=== PATIENT | male | born 1970 | race Caucasian/White ===

== ENCOUNTER 2020-02-19 12:19 | Inpatient (IN) ==
[2020-02-19] MEDS ORDERED: Naloxone 0.4 MG/ML INJ IVP PRN (15:27)
[2020-02-19] MEDS ORDERED: Ondansetron 4 MG/2 ML VIAL IVP PRN (15:27)
[2020-02-19] MEDS ORDERED: *HR* HYDROcodone/Acet 5/325 mg TABLET PO PRN (15:27)
[2020-02-19] MEDS ORDERED: Albuterol 2.5 MG/3 ML NEBULIZER IH PRN (15:30)
[2020-02-19] MEDS ORDERED: 0.9 % Sodium Chloride 1,000 ML IVC SCH (15:30)
[2020-02-19] MEDS ORDERED: *HR* LORazepam 2 MG/ML VIAL IVP PRN ×2 (15:34→15:36)
[2020-02-19] MEDS ORDERED: Perflutren Lipid Microsphere 1.3 ML in 0.9 % Sodium Chloride 8.7 ML IVP PRN (16:12)
[2020-02-19 16:13] LABS: Prothrombin Time 11.3 Seconds (9.4-12.1)
[2020-02-19 16:15] LABS: Activated Partial Thrombo Time 39.5 Seconds (26.0-36.0)
[2020-02-19 16:19] LABS: Basophils # 0.1 K/mcL (0.0-0.2); Basophils % 1.4 %; Eosinophils # 0.3 K/mcL (0.0-0.6); Eosinophils % 3.9 %; Immature Granulocytes % 0.3 % (0-4); Lymphocytes # 1.6 K/mcL (0.6-4.6); Lymphocytes % 25.6 %; Mean Corpuscular HGB Conc 32.6 g/dL (31.6-35.5); Mean Corpuscular Hemoglobin 34.1 pg (28.0-33.3); Mean Corpuscular Volume 104.6 fL (83.0-100.0); Mean Platelet Volume 10.3 fL (9.4-12.4); Monocytes # 0.7 K/mcL (0.0-1.3); Monocytes % 10.6 %; Neutrophils # 3.7 K/mcL (1.6-8.9); Platelet Count 174 K/mcL (140-400); Red Blood Count 4.11 M/mcL (4.19-5.50); Red Cell Distribution Width 13.2 % (11.5-14.5); Segmented Neutrophils % 58.2 %; White Blood Count 6.3 K/mcL (4.3-11.1)
[2020-02-19 16:26] LABS: Uric Acid 15.5 mg/dL (2.3-7.6)
[2020-02-19 16:28] LABS: Albumin 4.6 g/dL (3.5-5.7); Albumin/Globulin Ratio 1.2 (1.1-2.2); Bilirubin,Total 0.8 mg/dL (0.3-1.0); Calcium 10.6 mg/dL (8.6-10.3); Globulin 3.7 g/dL (2.4-3.5); Potassium 5.4 mEq/L (3.5-5.1); Total Protein 8.3 g/dL (6.4-8.9)
[2020-02-19 16:29] LABS: Amylase 49 Units/L (29-103); Lipase 29 Units/L (11-82)
[2020-02-19] MEDS: *HR* Heparin 5,000 UNIT/ML VIAL SQ SCH (17:17)
[2020-02-19 18:05] LABS: Bacteria,Urine Few per hpf (None-Few); Bilirubin,Urine Negative (Negative); Blood,Urine Negative (Negative); Clarity,Urine Clear (Clear); Color,Urine Light-Yellow (Yellow); Glucose,Urine (UA) Normal (Normal); Ketones,Urine Negative (Negative); Leukocyte Esterase,Urine Trace (Negative); Mucus,Urine Few per lpf (None-Few); Nitrite,Urine Negative (Negative); PH,Urine 5.5 pH Units (5.0-8.0); Protein,Urine 30 mg/dL (Neg-Trace); Specific Gravity,Urine 1.017 (1.010-1.025); Squamous Epithelial Cell,Urine Few per hpf (None-Few); Urobilinogen,Urine Normal (Normal)
[2020-02-19] MEDS: Sodium Bicarbonate 75 MEQ in 0.45 % Sodium Chloride 1,000 ML IVC SCH (18:08)
[2020-02-19 18:24] LABS: Creatinine,Urine 162 mg/dL; Potassium,Urine 17.9 mEq/L; Sodium, Urine 62.7 mEq/L
[2020-02-19 18:35] LABS: Amphetamine Screen,Urine Negative ng/mL (Cutoff=1000); Barbiturate Screen,Urine Negative ng/mL (Cutoff=200); Benzodiazepines Screen,Urine Positive ng/mL (Cutoff=200); Cannabinoid Screen,Urine Negative ng/mL (Cutoff = 50); Cocaine Screen,Urine Negative ng/mL (Cutoff= 300); Opiate Screen,Urine Negative ng/mL (Cutoff=300); Phencyclidine Screen,Urine Negative ng/mL (Cutoff=25)
[2020-02-19] MEDS: *HR* LORazepam 2 MG/ML VIAL IVP PRN (20:40)
[2020-02-20] MEDS: Sodium Bicarbonate 75 MEQ in 0.45 % Sodium Chloride 1,000 ML IVC SCH ×3 (04:08→23:24)
[2020-02-20] MEDS: *HR* Heparin 5,000 UNIT/ML VIAL SQ SCH ×2 (04:18→17:27)
[2020-02-20] MEDS: *HR* LORazepam 2 MG/ML VIAL IVP PRN ×3 (04:35→17:36)
[2020-02-20 05:38] LABS: Troponin I < 0.03 ng/mL (< 0.04)
[2020-02-20 07:24] LABS: BUN/Creatinine Ratio 22 (6-26); Blood Urea Nitrogen 120 mg/dL (6-20); Calcium 10.1 mg/dL (8.6-10.3); Carbon Dioxide 18 mEq/L (23-29); Chloride 99 mEq/L (98-107); Glucose 126 mg/dL (70-105); Osmolality,Calculated 314 (280-300); Potassium 5.2 mEq/L (3.5-5.1); Sodium 132 mEq/L (136-145); eGFR For African Americans 14 (> 60); eGFR For Non-African Americans 11 (> 60)
[2020-02-20 08:08] LABS: Estimated Average Glucose 126 mg/dl
[2020-02-20 09:09] LABS: Chol/HDL Ratio 8.1 (0-4.9); Cholesterol 202 mg/dL (< 200); HDL Cholesterol 25 mg/dL (40-59); LDL Cholesterol,Calculated 140 mg/dL (< 100); Triglycerides 185 mg/dL (< 150)
[2020-02-20] MEDS: Folic Acid 1 MG TABLET PO SCH (09:13)
[2020-02-20] MEDS: Vitamin B Complex/Vit C/Vit E 1 EACH TABLET PO SCH (09:13)
[2020-02-20] MEDS: Thiamine (B-1) 100 MG TABLET PO SCH (09:13)
[2020-02-20 09:35] LABS: Basophils # 0.1 K/mcL (0.0-0.2); Basophils % 1.6 %; Eosinophils # 0.2 K/mcL (0.0-0.6); Eosinophils % 4.7 %; Hematocrit 41.3 % (37.5-50.1); Immature Granulocytes % 0.2 % (0-4); Lymphocytes # 1.6 K/mcL (0.6-4.6); Lymphocytes % 30.9 %; Mean Corpuscular HGB Conc 33.9 g/dL (31.6-35.5); Mean Corpuscular Hemoglobin 35.2 pg (28.0-33.3); Mean Corpuscular Volume 103.8 fL (83.0-100.0); Mean Platelet Volume 10.5 fL (9.4-12.4); Monocytes # 0.5 K/mcL (0.0-1.3); Monocytes % 9.5 %; Neutrophils # 2.7 K/mcL (1.6-8.9); Platelet Count 167 K/mcL (140-400); Red Blood Count 3.98 M/mcL (4.19-5.50); Red Cell Distribution Width 13.1 % (11.5-14.5); Segmented Neutrophils % 53.1 %; White Blood Count 5.1 K/mcL (4.3-11.1)
[2020-02-20 09:38] LABS: Calcium 10.4 mg/dL (8.6-10.3)
[2020-02-20] MEDS: Nicotine 21 MG PATCH.TD24 TD SCH (11:57)
[2020-02-21] MEDS: Vilazodone Hcl [Viibryd] 10 MG PO SCH ×2 (02:18→07:05)
[2020-02-21] MEDS: Famotidine 20 MG TABLET PO SCH ×3 (02:29→19:27)
[2020-02-21 02:30] LABS: Basophils # 0.1 K/mcL (0.0-0.2); Basophils % 1.4 %; Eosinophils # 0.2 K/mcL (0.0-0.6); Eosinophils % 4.1 %; Immature Granulocytes % 0.2 % (0-4); Lymphocytes # 1.4 K/mcL (0.6-4.6); Lymphocytes % 32.7 %; Mean Corpuscular HGB Conc 33.2 g/dL (31.6-35.5); Mean Corpuscular Hemoglobin 34.6 pg (28.0-33.3); Mean Corpuscular Volume 104.2 fL (83.0-100.0); Mean Platelet Volume 10.7 fL (9.4-12.4); Monocytes # 0.4 K/mcL (0.0-1.3); Monocytes % 9.1 %; Neutrophils # 2.2 K/mcL (1.6-8.9); Platelet Count 144 K/mcL (140-400); Red Blood Count 3.55 M/mcL (4.19-5.50); Red Cell Distribution Width 12.9 % (11.5-14.5); Segmented Neutrophils % 52.5 %; White Blood Count 4.2 K/mcL (4.3-11.1)
[2020-02-21 02:31] LABS: Hemoglobin 12.3 g/dL (12.9-16.9)
[2020-02-21] MEDS: *HR* LORazepam 2 MG/ML VIAL IVP PRN ×4 (02:36→22:01)
[2020-02-21 02:50] LABS: Albumin 4.1 g/dL (3.5-5.7); Albumin/Globulin Ratio 1.3 (1.1-2.2); Bilirubin,Total 0.6 mg/dL (0.3-1.0); Calcium 9.6 mg/dL (8.6-10.3); Globulin 3.1 g/dL (2.4-3.5); Potassium 4.8 mEq/L (3.5-5.1); Total Protein 7.2 g/dL (6.4-8.9)
[2020-02-21] MEDS: *HR* Heparin 5,000 UNIT/ML VIAL SQ SCH ×3 (05:53→19:33)
[2020-02-21] MEDS: Thiamine (B-1) 100 MG TABLET PO SCH (07:12)
[2020-02-21] MEDS: Folic Acid 1 MG TABLET PO SCH (07:12)
[2020-02-21] MEDS: Nicotine 21 MG PATCH.TD24 TD SCH ×2 (07:12→10:33)
[2020-02-21] MEDS: Vitamin B Complex/Vit C/Vit E 1 EACH TABLET PO SCH (07:12)
[2020-02-21] MEDS: Sodium Bicarbonate 75 MEQ in 0.45 % Sodium Chloride 1,000 ML IVC SCH ×3 (10:34→19:33)
[2020-02-22] MEDS: *HR* LORazepam 2 MG/ML VIAL IVP PRN (01:59)
[2020-02-22 04:14] LABS: Hemoglobin 12.3 g/dL (12.9-16.9); Mean Corpuscular HGB Conc 32.4 g/dL (31.6-35.5); Mean Corpuscular Hemoglobin 33.9 pg (28.0-33.3); Mean Corpuscular Volume 104.7 fL (83.0-100.0); Mean Platelet Volume 10.7 fL (9.4-12.4); Platelet Count 143 K/mcL (140-400); Red Blood Count 3.63 M/mcL (4.19-5.50); White Blood Count 5.3 K/mcL (4.3-11.1)
[2020-02-22 04:31] LABS: Calcium 9.9 mg/dL (8.6-10.3); Potassium 4.7 mEq/L (3.5-5.1)
[2020-02-22 07:57] VITALS: BP 133/85
[2020-02-22] MEDS: Famotidine 20 MG TABLET PO SCH (08:28)
[2020-02-22] MEDS: Vitamin B Complex/Vit C/Vit E 1 EACH TABLET PO SCH (08:28)
[2020-02-22] MEDS: Nicotine 21 MG PATCH.TD24 TD SCH (08:28)
[2020-02-22] MEDS: Thiamine (B-1) 100 MG TABLET PO SCH (08:28)
[2020-02-22] MEDS: Folic Acid 1 MG TABLET PO SCH (08:28)
[2020-02-22] MEDS ORDERED: Metoprolol XL (24 HR) Succ 25 MG TAB.ER.24H PO SCH (09:00)
== END 2020-02-22 14:15 | disposition home or self-care (01) | DRG 683 ==
LOC: 2ANU
PROVIDERS: ADMIT Internal Medicine; ATTEND Internal Medicine

== ENCOUNTER 2020-03-11 20:43 | Inpatient (IN) ==
[2020-03-12] MEDS ORDERED: Naloxone 0.4 MG/ML INJ IVP PRN (01:21)
[2020-03-12 02:11] LABS: Basophils % 0.3 %; Eosinophils # 0.1 K/mcL (0.0-0.6); Eosinophils % 0.6 %; Hematocrit 38.1 % (37.5-50.1); Hemoglobin 12.6 g/dL (12.9-16.9); Immature Granulocytes % 0.2 % (0-4); Lymphocytes # 1.9 K/mcL (0.6-4.6); Lymphocytes % 18.6 %; Mean Corpuscular HGB Conc 33.1 g/dL (31.6-35.5); Mean Corpuscular Hemoglobin 33.7 pg (28.0-33.3); Mean Corpuscular Volume 101.9 fL (83.0-100.0); Mean Platelet Volume 9.6 fL (9.4-12.4); Monocytes # 0.8 K/mcL (0.0-1.3); Monocytes % 7.7 %; Neutrophils # 7.5 K/mcL (1.6-8.9); Platelet Count 160 K/mcL (140-400); Red Blood Count 3.74 M/mcL (4.19-5.50); Red Cell Distribution Width 12.9 % (11.5-14.5); Segmented Neutrophils % 72.6 %; White Blood Count 10.3 K/mcL (4.3-11.1)
[2020-03-12 02:19] LABS: Prothrombin Time 11.7 Seconds (9.4-12.1)
[2020-03-12 02:30] LABS: Albumin 4.4 g/dL (3.5-5.7); Albumin/Globulin Ratio 1.3 (1.1-2.2); Bilirubin,Total 0.7 mg/dL (0.3-1.0); Calcium 9.4 mg/dL (8.6-10.3); Globulin 3.3 g/dL (2.4-3.5); Magnesium 1.4 mg/dL (1.6-2.6); Phosphorous 5.4 mg/dL (2.7-4.5); Potassium 4.7 mEq/L (3.5-5.1); Total Protein 7.7 g/dL (6.4-8.9)
[2020-03-12] MEDS: *HR* LORazepam 2 MG/ML VIAL IVP PRN ×5 (02:47→23:56)
[2020-03-12] MEDS: 0.9 % Sodium Chloride 1,000 ML IVC SCH ×2 (03:05→13:47)
[2020-03-12 03:08] LABS: Amorphous Sediment,Urine Few per hpf (None-Few); Bacteria,Urine Few per hpf (None-Few); Bilirubin,Urine Negative (Negative); Blood,Urine Small (Negative); Clarity,Urine Turbid (Clear); Color,Urine Light-Yellow (Yellow); Glucose,Urine (UA) 70 mg/dL (Normal); Ketones,Urine Negative (Negative); Leukocyte Esterase,Urine Negative (Negative); Nitrite,Urine Negative (Negative); PH,Urine 5.5 pH Units (5.0-8.0); Protein,Urine 30 mg/dL (Neg-Trace); RBC,Urine 0-3 per hpf (0-3); Specific Gravity,Urine 1.013 (1.010-1.025); Squamous Epithelial Cell,Urine Few per hpf (None-Few); Urobilinogen,Urine Normal (Normal)
[2020-03-12 03:15] LABS: Potassium,Urine 2.3 mEq/L; Sodium, Urine 34.1 mEq/L
[2020-03-12 03:16] LABS: Amphetamine Screen,Urine Negative ng/mL (Cutoff=1000); Barbiturate Screen,Urine Negative ng/mL (Cutoff=200); Benzodiazepines Screen,Urine Negative ng/mL (Cutoff=200); Cannabinoid Screen,Urine Negative ng/mL (Cutoff = 50); Cocaine Screen,Urine Negative ng/mL (Cutoff= 300); Opiate Screen,Urine Negative ng/mL (Cutoff=300); Phencyclidine Screen,Urine Negative ng/mL (Cutoff=25)
[2020-03-12] MEDS: *HR* Promethazine 25 MG/ML VIAL IVP PRN (06:38)
[2020-03-12] MEDS ORDERED: *HR* LORazepam 2 MG/ML VIAL IVP PRN ×2 (07:19→15:42)
[2020-03-12 10:36] LABS: Uric Acid 11.6 mg/dL (2.3-7.6)
[2020-03-12] MEDS ORDERED: Sodium Bicarbonate 75 MEQ in 0.45 % Sodium Chloride 1,000 ML IVC SCH (12:45)
[2020-03-12 14:48] LABS: % Iron Saturation 42 % (20-55); Creatine Kinase 82 Units/L (30-223); Iron 105 mcg/dL (65-175); Transferrin 180 mg/dL (203-362)
[2020-03-12 14:55] LABS: Ferritin 588 ng/mL (20-250)
[2020-03-12 15:00] LABS: Folate 6.6 ng/mL (3.0-16.0)
[2020-03-12] MEDS: Sodium Bicarbonate 75 MEQ in 0.45 % Sodium Chloride 1,000 ML IVC SCH ×2 (15:18→23:56)
[2020-03-12] MEDS: Thiamine (B-1) 100 MG, Folic Acid 1 MG, MVI, adult with vitamin K 10 ML in 0.9 % Sodi... IVPB SCH (17:51)
[2020-03-12] MEDS: Nicotine 21 MG PATCH.TD24 TD SCH (21:37)
[2020-03-13] MEDS: *HR* Promethazine 25 MG/ML VIAL IVP PRN ×3 (00:01→15:32)
[2020-03-13] MEDS: 0.9 % Sodium Chloride 1,000 ML IVC SCH ×3 (04:00→19:17)
[2020-03-13 05:34] LABS: Basophils % 0.6 %; Eosinophils # 0.1 K/mcL (0.0-0.6); Eosinophils % 1.5 %; Hematocrit 37.8 % (37.5-50.1); Hemoglobin 12.3 g/dL (12.9-16.9); Immature Granulocytes % 0.1 % (0-4); Lymphocytes # 2.2 K/mcL (0.6-4.6); Lymphocytes % 33.5 %; Mean Corpuscular HGB Conc 32.5 g/dL (31.6-35.5); Mean Corpuscular Hemoglobin 33.3 pg (28.0-33.3); Mean Corpuscular Volume 102.4 fL (83.0-100.0); Mean Platelet Volume 10.1 fL (9.4-12.4); Monocytes # 0.6 K/mcL (0.0-1.3); Neutrophils # 3.7 K/mcL (1.6-8.9); Platelet Count 152 K/mcL (140-400); Red Blood Count 3.69 M/mcL (4.19-5.50); Red Cell Distribution Width 12.9 % (11.5-14.5); Segmented Neutrophils % 55.3 %; White Blood Count 6.7 K/mcL (4.3-11.1)
[2020-03-13 05:53] LABS: Calcium 9.8 mg/dL (8.6-10.3); Magnesium 1.6 mg/dL (1.6-2.6); Uric Acid 10.2 mg/dL (2.3-7.6)
[2020-03-13] MEDS: Metoprolol XL (24 HR) Succ 25 MG TAB.ER.24H PO SCH (08:16)
[2020-03-13] MEDS: Nicotine 21 MG PATCH.TD24 TD SCH (08:16)
[2020-03-13] MEDS: *HR* LORazepam 2 MG/ML VIAL IVP PRN ×6 (08:27→23:29)
[2020-03-13] MEDS ORDERED: 0.9 % Sodium Chloride 1,000 ML IVC ONE (10:42)
[2020-03-13 11:11] LABS: Estimated Average Glucose 134 mg/dl
[2020-03-13] MEDS: Thiamine (B-1) 100 MG, Folic Acid 1 MG, MVI, adult with vitamin K 10 ML in 0.9 % Sodi... IVPB SCH (17:41)
[2020-03-14] MEDS: *HR* LORazepam 2 MG/ML VIAL IVP PRN ×2 (03:53→04:52)
[2020-03-14] MEDS: Metoprolol XL (24 HR) Succ 25 MG TAB.ER.24H PO SCH (08:18)
[2020-03-14] MEDS: Nicotine 21 MG PATCH.TD24 TD SCH (08:18)
[2020-03-14 11:56] LABS: Calcium 9.2 mg/dL (8.6-10.3); Magnesium 1.2 mg/dL (1.6-2.6); Potassium 4.5 mEq/L (3.5-5.1)
[2020-03-14 15:17] LABS: Basophils % 0.4 %; Eosinophils # 0.2 K/mcL (0.0-0.6); Eosinophils % 2.8 %; Hematocrit 32.7 % (37.5-50.1); Hemoglobin 10.8 g/dL (12.9-16.9); Immature Granulocytes % 0.4 % (0-4); Lymphocytes # 1.8 K/mcL (0.6-4.6); Lymphocytes % 34.2 %; Mean Corpuscular Hemoglobin 34.6 pg (28.0-33.3); Mean Corpuscular Volume 104.8 fL (83.0-100.0); Mean Platelet Volume 10.3 fL (9.4-12.4); Monocytes # 0.6 K/mcL (0.0-1.3); Monocytes % 11.6 %; Neutrophils # 2.7 K/mcL (1.6-8.9); Platelet Count 136 K/mcL (140-400); Red Blood Count 3.12 M/mcL (4.19-5.50); Red Cell Distribution Width 12.8 % (11.5-14.5); Segmented Neutrophils % 50.6 %; White Blood Count 5.3 K/mcL (4.3-11.1)
[2020-03-14] MEDS: Thiamine (B-1) 100 MG, Folic Acid 1 MG, MVI, adult with vitamin K 10 ML in 0.9 % Sodi... IVPB SCH (17:46)
[2020-03-15 02:03] LABS: Calcium 8.9 mg/dL (8.6-10.3); Magnesium 1.6 mg/dL (1.6-2.6); Potassium 4.5 mEq/L (3.5-5.1)
[2020-03-15 02:06] LABS: Hemoglobin 11.9 g/dL (12.9-16.9); Mean Corpuscular HGB Conc 32.2 g/dL (31.6-35.5); Mean Corpuscular Volume 102.5 fL (83.0-100.0); Mean Platelet Volume 10.6 fL (9.4-12.4); Platelet Count 138 K/mcL (140-400); Red Blood Count 3.61 M/mcL (4.19-5.50); Red Cell Distribution Width 12.8 % (11.5-14.5); White Blood Count 7.2 K/mcL (4.3-11.1)
[2020-03-15] MEDS: Metoprolol XL (24 HR) Succ 25 MG TAB.ER.24H PO SCH (09:50)
[2020-03-15] MEDS: Nicotine 21 MG PATCH.TD24 TD SCH (09:50)
[2020-03-15 11:31] VITALS: BP 158/91
[2020-03-15] MEDS ORDERED: Silvasorb 44.4 ML TUBE TP SCH (14:00)
== END 2020-03-15 14:58 | disposition home or self-care (01) | DRG 683 ==
LOC: 2ANU → SUATTDRO 03-12 01:04
PROVIDERS: ADMIT Internal Medicine; ATTEND Family Medicine